=== PATIENT | female | born 1995 | race Caucasian/White ===

== ENCOUNTER 2018-12-11 10:06 | Day surgery (SDC) | payer OTHER ==
[~2018-12-11] VITALS: Ht 167.7 cm; Wt 73.6 kg
[2018-12-11] VITALS (11 sets, daily range): BP systolic 101–119; BP diastolic 65–74
[2018-12-11 10:30] LABS: BILIRUBIN,URINE NEGATIVE (NEGATIVE); CLARITY,URINE SLIGHTLY CLOUDY; COLOR,URINE YELLOW; GLUCOSE, URINE (UA) NEGATIVE (NEGATIVE); KETONES,URINE NEGATIVE (NEGATIVE); LEUKOCYTE ESTERASE ,URINE 2+ (NEGATIVE); NITRITE,URINE NEGATIVE (NEGATIVE); PH,URINE 6 (5-9); PROTEIN,URINE NEGATIVE (NEGATIVE)
[2018-12-11 10:40] LABS: BACTERIA,URINE LARGE /HPF; RBC,URINE 0-2 /HPF
[2018-12-11] MEDS: LACTATED RINGERS 1,000 ML IV PRN ×2 (11:49→14:37)
[2018-12-11 13:05] LABS: HEMOGLOBIN 12.6 G/DL (11.5-16.0); MEAN PLATELET VOLUME 10.3 FL (7.4-10.4); RED CELL DISTRIBUTION WIDTH 12.6 % (10.0-14.5); WHITE BLOOD COUNT 10.1 10^3/uL (4.3-11.0)
--- NOTE | 2018-12-11 13:11 | Progress Note-Pre Operative ---
Pre-Operative Progress Note H&P Reviewed The H&P was reviewed, patient examined and no changes noted. Date Seen by Provider: Dec 11, 2018 Time Seen by Provider: 13:00 Date H&P Reviewed: Dec 11, 2018 Time H&P Reviewed: 13:00 Pre-Operative Diagnosis: missed SAUL BUCKLEY DO Dec 11, 2018 13:11 POS
[2018-12-11] MEDS ORDERED: SEVOFLURANE (ULTANE) 15 ML INHAL SOLN ONE (13:58)
[2018-12-11] MEDS ORDERED: ONDANSETRON 4 MG/2 ML (SDV) Z0FRAN ONE (13:58)
[2018-12-11] MEDS ORDERED: DEXAMETHASONE 10 MG/ML (DECADRON) 1 ML VIAL ONE (13:58)
[2018-12-11] MEDS ORDERED: proPOfol 200 MG/20 ML (DIPRIVAN) VIAL IV ONE (13:58)
[2018-12-11] MEDS ORDERED: MIDAZOLAM 2 MG/2 ML (VERSED) VIAL ONE (13:59)
[2018-12-11] MEDS ORDERED: fentaNYL INJECTION 100 MCG/2 ML AMP ONE (13:59)
[2018-12-11] MEDS ORDERED: ceFAZolin INJECTION 1,000 MG in WATER (STERILE) FOR INJECTION 10 ML IV ONE (14:00)
--- NOTE | 2018-12-11 14:20 | Anesthesia-General Post-Op ---
General Patient Condition Mental Status/LOC: Same as Preop Cardiovascular: Satisfactory Nausea/Vomiting: Absent Respiratory: Satisfactory Pain: Controlled Complications: Absent Post Op Complications Complications None Follow Up Care/Instructions Patient Instructions None needed. Anesthesia/Patient Condition Patient Condition Patient is doing well, no complaints, stable vital signs, no apparent adverse anesthesia problems. No complications reported per nursing. SELENA JACOBS CRNA Dec 11, 2018 14:20 POS
[2018-12-11] MEDS ORDERED: METHYLERGONOVINE 0.2 MG/ML (METHERGINE) AMP ONE (14:33)
[2018-12-11] MEDS ORDERED: KETOROLAC 30 MG/ML VIAL ONE (14:38)
[2018-12-11] MEDS ORDERED: ACETAMINOPHEN 500 MG TAB (TYLENOL) PO PRN (14:45)
[2018-12-11] MEDS ORDERED: METHYLERGONOVINE 0.2 MG/ML (METHERGINE) AMP IM ONE (14:45)
[2018-12-11] MEDS ORDERED: IBUP-844 PO (14:50)
[2018-12-11] MEDS ORDERED: OXC5T PO (14:50)
[2018-12-11] MEDS ORDERED: ACET-2267 PO (14:51)
--- NOTE | 2018-12-11 14:52 | Discharge Inst-Women's Service ---
Discharge Inst-Women's Serv Depart Medication/Instructions New, Converted or Re-Newed RX: RX on Chart Final Diagnosis missed /miscarriage Problems Reviewed?: Yes Consults/Follow Up Additional Follow Up: Yes (7-[address] Buckley) Activity Activity: Activity as Tolerated Driving Instructions: No Driving for 24 Hours NO SMOKING: NO SMOKING Nothing Inside Vagina: No Douching, No [place], No Tampons Diet Discharge Diet: No Restrictions Symptoms to Report to : Swelling Increased, Bleeding Excessive, Pain Increased, Fever Over 101 Degrees F, Vaginal Bleeding Increase, Vaginal Discharge Foul For Any Problems or Questions: Contact Your Physician SAUL BUCKLEY DO Dec 11, 2018 14:52 POS
--- NOTE | 2018-12-11 14:56 | Operative Report ---
Operative Report Date of Procedure/Surgery Dec 11, 2018 Surgeon (s) SAUL BUCKLEY DO Director Of Grants (s): NA Post-Operative Diagnosis missed Procedure Performed suction dilation and curettage Description of Procedure Anesthesia Type: General Estimated blood loss (mL): 400 Specimen(s) collected/removed product of conception Findings of the Procedure moderate amounts of POC Allergies and Home Medications Allergies Coded Allergies: No Known Drug Allergies (Unverified , 12/11/18) Home Medications Acetaminophen 500 Mg Tablet, 1,000 MG PO TID Prescribed by: SAUL BUCKLEY on 12/11/18 1451 Ibuprofen 600 Mg Tablet, 600 MG PO Q6HR Prescribed by: SAUL BUCKLEY on 12/11/18 145 Oxycodone Hcl 5 Mg Tab, 5 MG PO Q4H PRN for PAIN-SEVERE Prescribed by: SAUL BUCKLEY on 12/11/18 145 SAUL BUCKLEY DO Dec 11, 2018 14:56 POS
[2018-12-11] MEDS ORDERED: ONDANSETRON 4 MG/2 ML (SDV) Z0FRAN IVP PRN (15:00)
[2018-12-11] MEDS ORDERED: HYDROmorphone 2 MG/ML VIAL (DILAUDID) IV ONE (15:00)
[2018-12-11] MEDS ORDERED: IBUPROFEN 600 MG (MOTRIN) TAB PO SCH (18:00)
== END 2018-12-11 16:50 | disposition home or self-care (01) ==
LOC: SDC 10:06
PROVIDERS: ATTEND Obstetrics & Gynecology
DX: O02.1 Missed abortion (principal); Z11.2 Encounter for screening for other bacterial diseases; F32.9 Major depressive disorder, single episode, unspecified
CPT/HCPCS: 36415; 81000; 85027; 86850; 86900; 86901; 87081; 87088; 88305